=== PATIENT | male | born 1940 | race Caucasian/White ===

== ENCOUNTER 2018-12-11 11:22 | Emergency (ER) | payer MEDICARE ==
[~2018-12-11] VITALS: Ht 182.9 cm; Wt 116.1 kg
[2018-12-11 13:55] LABS: BASOPHILS ABSOLUTE AUTO 0.04 K/mm3 (0.00-0.23); BASOPHILS PERCENT AUTO 0 % (0-2); EOSINOPHILS ABSOLUTE AUTO 0.03 K/mm3 (0.00-0.68); EOSINOPHILS PERCENT AUTO 0 % (0-6); Hemoglobin 11.9 g/dL (13.5-17.5); IMMATURE GRAN ABSOLUTE AUTO 0.06 K/mm3 (0.00-0.10); IMMATURE GRAN PERCENT AUTO 0 % (0-1); LYMPHOCYTES ABSOLUTE AUTO 0.79 K/mm3 (0.84-5.20); LYMPHOCYTES PERCENT AUTO 5 % (21-46); MONOCYTES ABSOLUTE AUTO 1.77 K/mm3 (0.16-1.47); MONOCYTES PERCENT AUTO 12 % (4-13); Mean Corpuscular HGB 31.2 pg (26.0-34.0); Mean Corpuscular HGB Conc 31.3 g/dL (31.5-36.5); Mean Corpuscular Volume 100 fL (80-100); Mean Platelet Volume 11.7 fL (9.1-12.4); NEUTROPHILS ABSOLUTE AUTO 12.01 K/mm3 (1.96-9.15); NEUTROPHILS PERCENT AUTO 82 % (41-73); Platelet Count 255 K/mm3 (150-400); RDW Coefficient Variation 13.4 % (11.7-14.2); Red Blood Cell Count 3.82 M/mm3 (4.30-5.90)
[2018-12-11 14:12] LABS: C-REACTIVE PROTEIN, EXT RANGE 13.2 mg/dL (0.000-0.300)
[2018-12-11 14:13] LABS: Uric Acid, Blood 5.5 mg/dL (3.5-7.2)
[2018-12-11 16:51] LABS: Body Fluid Crystals POS (NEGATIVE)
[2018-12-11 17:20] LABS: BODY FLUID RBC 0.327 (0-0); RBC Count, Synovial Fluid 327000 /mm3 (0-0)
[2018-12-11 17:34] LABS: WBC Count, Synovial Fluid 74370 /mm3 (0-180)
[2018-12-11 17:36] LABS: Appearance, Synovial Fluid Bloody (Clear); Color, Synovial Fluid Red (None-P Yel)
[2018-12-11] MEDS ORDERED: CEPH500 PO (17:55)
[2018-12-11] MEDS ORDERED: HYDR1TAB94 PO ×2 (17:55→18:09)
[2018-12-11] MEDS ORDERED: Bactrim Ds Tab1 EACH PO (17:55)
[2018-12-11 18:59] LABS: Lymphs, Synovial Fluid 2 % (0-15); Monocytes/Macrophages, Synovia 4 % (0-65); Neutrophils, Synovial Fluid 94 % (0-24)
== END 2018-12-11 18:45 | disposition home or self-care (01) ==
LOC: ER 11:22
PROVIDERS: Physician Assistant
DX: M79.89 Other specified soft tissue disorders (principal)
CPT/HCPCS: 36415; 73110; 76882; 84550; 85025; 86140; 89051; 89060; J0690; J1885

== ENCOUNTER 2019-02-18 15:52 | Emergency (ER) | payer MEDICARE ==
[~2019-02-18] VITALS: Ht 188 cm; Wt 99.8 kg
[~2019-02-18 15:52] MED LIST: Bactrim Ds Tab1 EACH PO; CEPH500 PO; HYDR1TAB94 PO
[2019-02-18 16:45] LABS: BASOPHILS ABSOLUTE AUTO 0.02 K/mm3 (0.00-0.23); BASOPHILS PERCENT AUTO 0 % (0-2); EOSINOPHILS ABSOLUTE AUTO 0.05 K/mm3 (0.00-0.68); EOSINOPHILS PERCENT AUTO 0 % (0-6); Hematocrit 44.8 % (37.0-53.0); IMMATURE GRAN ABSOLUTE AUTO 0.04 K/mm3 (0.00-0.10); IMMATURE GRAN PERCENT AUTO 0 % (0-1); LYMPHOCYTES ABSOLUTE AUTO 0.74 K/mm3 (0.84-5.20); LYMPHOCYTES PERCENT AUTO 6 % (21-46); MONOCYTES ABSOLUTE AUTO 1.37 K/mm3 (0.16-1.47); MONOCYTES PERCENT AUTO 11 % (4-13); Mean Corpuscular HGB Conc 31.3 g/dL (31.5-36.5); Mean Corpuscular Volume 96 fL (80-100); Mean Platelet Volume 11.6 fL (9.1-12.4); NEUTROPHILS ABSOLUTE AUTO 10.16 K/mm3 (1.96-9.15); NEUTROPHILS PERCENT AUTO 82 % (41-73); Platelet Count 273 K/mm3 (150-400); RDW Coefficient Variation 15.5 % (11.7-14.2); RDW Standard Deviation 54.4 fL (35.1-46.3); Red Blood Cell Count 4.66 M/mm3 (4.30-5.90); White Blood Cell Count 12.38 K/mm3 (4.00-11.30)
[2019-02-18] MEDS ORDERED: FURO20 PO (16:53)
[2019-02-18 16:54] LABS: International Normalized Ratio 1.07; Prothrombin Time Results 11.3 Sec (9.7-11.5)
[2019-02-18] MEDS ORDERED: METF500 PO (16:55)
[2019-02-18] MEDS ORDERED: METO100ER PO (16:56)
[2019-02-18] MEDS ORDERED: ZESTORETIC 20-121 EA (16:56)
[2019-02-18] MEDS ORDERED: ALLO100 PO (16:57)
[2019-02-18] MEDS ORDERED: ELIQUIS5 MG PO (16:58)
[2019-02-18] MEDS ORDERED: ASPI81CH PO (16:58)
[2019-02-18] MEDS ORDERED: GLIM2 PO (16:59)
[2019-02-18 17:06] LABS: Albumin, Blood 3.4 g/dL (3.4-5.0); Albumin/Globulin Ratio 0.8 (0.8-1.8); Bilirubin, Total 1.4 mg/dL (0.1-1.0); Bun/Creatinine Ratio 14.8 (12.0-20.0); Calcium, Blood 9.1 mg/dL (8.5-10.1); Creatinine, Blood 1.49 mg/dL (0.60-1.20); Globulin, Blood 4.1 g/dL (2.2-4.0); Potassium, Blood 3.5 mmol/L (3.5-5.5); Total Protein, Blood 7.5 g/dL (6.4-8.2)
== END 2019-02-18 20:05 | disposition short-term general hospital (02) ==
LOC: ER 15:52
PROVIDERS: Physician Assistant
DX: I61.0 Nontraumatic intracerebral hemorrhage in hemisphere, subcortical (principal); E11.9 Type 2 diabetes mellitus without complications; I48.91 Unspecified atrial fibrillation; I10 Essential (primary) hypertension; Z79.899 Other long term (current) drug therapy; Z79.84 Long term (current) use of oral hypoglycemic drugs; Z79.82 Long term (current) use of aspirin
CPT/HCPCS: 36415; 70496; 70498; 80053; 85025; 85610; 85730; 93005; 93010; 96374-59; 99285-25; J0360; Q9967